=== PATIENT | male | born 1960 | race Caucasian/White ===

== ENCOUNTER 2024-07-21 08:22 | Day surgery (SDC) | payer OTHER ==
[2024-07-21] VITALS (8 sets, daily range): BP systolic 145–170; BP diastolic 89–102
[~2024-07-21] VITALS: Ht 188 cm; Wt 74.8 kg
[~2024-07-21 08:22] MED LIST: LISI10 PO; STIOLTO RESPIMAT4 G1 INH; Ventolin/Prove6.7 GM INH
[2024-07-21] MEDS ORDERED: AMLO5 PO (09:04)
[2024-07-21] MEDS ORDERED: Heparin Sodium 1000 Units/ML 10ML MDV ONE ×2 (10:02→10:10)
[2024-07-21] MEDS ORDERED: NS 1,000 ML IV ONE ×2 (10:02→10:10)
[2024-07-21] MEDS ORDERED: NS 250 ML IV ONE (10:02)
[2024-07-21] MEDS ORDERED: Midazolam HCl 1MG / ML 2ML Vial ONE ×3 (10:09→12:50)
[2024-07-21] MEDS ORDERED: FentaNYL Citrate 50 MCG/ML 2 ML Injection ONE ×3 (10:10→12:39)
[2024-07-21] MEDS ORDERED: NS 100 ML IV ONE (12:24)
[2024-07-21] MEDS ORDERED: HydrALAZINE HCl 20 MG / ML 1ML Vial ONE ×2 (12:37→14:15)
[2024-07-21] MEDS ORDERED: Clopidogrel Bisulfate 300 MG Cap ONE (13:27)
--- NOTE | 2024-07-21 13:50 | NUR ---
PT BACK TO RECOVERY ROOM. PRESSURE BEING HELD TO R GROIN
--- NOTE | 2024-07-21 14:00 | NUR ---
AT BEDSIDE. R GROIN SITE WITH SMALL HEMATOMA. PRESSURE HELD. VSS ON RA
[2024-07-21] MEDS ORDERED: Ketorolac Tromethamine 30mg Vial ONE (14:16)
--- NOTE | 2024-07-21 14:30 | NUR ---
10 MG IV HYDRALAZINE AND 15 MG IV TORADOL GIVEN PER VERBAL MD ORDER. WILL CONTINUE TO MONITOR PATIENT
[2024-07-21] MEDS ORDERED: Ondansetron HCl 2 MG / ML 2ML Vial ONE (14:38)
--- NOTE | 2024-07-21 14:44 | NUR ---
PT C/O NAUSEA, BUT REFUSES JOHNNY AND CRACKERS. PT GIVEN EMESIS BAG AND EDUCATED ABOUT RISK OF BEARING DOWN AFTER GROIN ACCESS. PT STS "YOU CAN GET ME OUT OF HERE" PT FRIENDS ARE AT BEDSIDE.
--- NOTE | 2024-07-21 14:45 | NUR ---
GROIN IS SOFT, TENDER.
[2024-07-21] MEDS ORDERED: Aspirin 81 MG Chew ONE (14:53)
--- NOTE | 2024-07-21 15:00 | NUR ---
PT VOMITS 200CC CLEAR FLUID. PT CONTINUES TO DENY ZOFRAN. R GROIN IS SOFT AND NON TENDER.
[2024-07-21] MEDS ORDERED: CLOP75 PO (15:26)
[2024-07-21] MEDS ORDERED: ASPI81CH PO (15:26)
--- NOTE | 2024-07-21 16:00 | NUR ---
PT REMAINS NAUSEATED, BUT NO FURTHER EMESIS; REQUESTING TO GO HOME. PT REPORTS HE HAS NAUSEA REGUARLY AT HOME WITH KIDNEY CANCER. PT AMB TO BATHROOM GAIT STEADY; SITE UNCHANGED WITH ACTIVITY. PT DRESSED SELF WITHOUT ISSUE, SITE UNCHANGED.
--- NOTE | 2024-07-21 16:13 | NUR ---
PT AND PARENTS RECEIVED DISCHARGE INSTRUCTIONS, MED LIST AND AFTER CARE INSTRUCTIONS; VERBALIZED GOOD UNDERSTANDING. PT LEFT FACILITY VIA W/C, CONDITION STABLE.
== END 2024-07-21 16:13 | disposition home or self-care (01) ==
LOC: MHTC 08:22
DX: I70.212 Atherosclerosis of native arteries of extremities with intermittent claudication, left leg (principal); F17.210 Nicotine dependence, cigarettes, uncomplicated; Z79.899 Other long term (current) drug therapy
CPT/HCPCS: 76937; 85347; 93005; 93010; 99152; 99153; A9270; C1725; C1753; C1760; C1769; C1874; C1887; C1894; J0360; J1644; J1885; J2250; J2405; J3010; J7030; J7050; Q9967